=== PATIENT | female | born 1960 | race Caucasian/White ===

== ENCOUNTER → 2019-03-04 11:01 | Day surgery (SDC) | payer MEDICARE, MEDICAID ==
[~2019-03-04 11:01] MED LIST: Buffered Lidocaine 1% SYRIN* 1 ML/SYRINGE INTRADERM ONE; Bupivacaine 0.5%* 50 ML VIAL ONE; Clindamycin 900 MG IVPREMIX(* 900 MG/50 ML SDV IV ONE; Lactated Ringers 1000 ML Bag* 1,000 ML IV SCH; Lidocaine 1% INJ* 10 MG/ML 30 ML SDV ONE; Midazolam* 1 MG/ML 5 ML VIAL (5 MG) ONE; Naloxone* 0.4 MG/ML 1 ML VIAL IV PRN; Propofol* 10 MG/ML 20 ML BTL ONE; fentaNYL* 50 MCG/ML 2 ML VIAL (100 MCG VIAL) ONE
[2019-03-04 16:07] VITALS: BP 120/85
--- NOTE | 2019-03-04 16:25 | OP ---
ATE OF OPERATION: 03/04/19 - [facility] DATE OF : 58 SERVICE: General Surgery. SURGEON: Cindy Paulson MD PACK PULLER: Krysten Austin MD ANESTHESIOLOGIST: Clair Carney MD ANESTHESIA: MAC/local anesthesia. PRE-OP DIAGNOSIS: Left bloody nipple discharge. POST-OP DIAGNOSIS: Left bloody nipple discharge. OPERATIVE PROCEDURE: Left breast terminal duct excision. SPECIMENS: Left terminal duct and breast tissue. ESTIMATED BLOOD LOSS: Minimal, less than 10 cc. INDICATIONS FOR SURGERY: Ms. Lan is a very pleasant 58-year-old female with a history of left breast bloody nipple discharge. She had undergone mammogram and ultrasound where no significant abnormalities found. Given the persistence of this suspicious nipple discharge, she gave informed consent for a terminal duct excision. She understood the risks, benefits, and alternatives of the procedure and she wished to proceed. DESCRIPTION OF PROCEDURE: The patient was brought back to the operating room and placed on the operating table in the supine position. Sequential compression devices were placed on the bilateral lower extremities for DVT prophylaxis. Antibiotics were administered prior to incision. She has an allergy to PENICILLIN, so clindamycin was given. She underwent MAC and local anesthesia. Her left breast was prepped and draped in normal sterile fashion, and prior to beginning the procedure, a time-out was performed verifying the patient's name, MR number, and the procedure to be performed. Next, the nipple was examined. A small amount of pink-clear discharge was able to be expressed from the central duct. The nipple was elevated superiorly and the narrowest caliber lacrimal probe was able to be advanced a short distance into the central duct. Therefore, local anesthesia was administed in the four quadrants of the breast and at the inferior areola. An inferior periareolar incision was made from 3 o'clock to 9 o'clock. The skin was divided down to the subcutaneous tissue and the subcutaneous tissue was divided towards the nipple. The nipple edge was retracted superiorly and then the central ducts were isolated using a mosquito clamp. They were serially divided until the most central duct that the lacrimal probe had cannulated was identified. The lacrimal probe was clearly seen to be contained within this duct; therefore, the duct was clamped distally and proximally and divided. The proximal end was elevated and a small cone of tissue inferiorly was taken along with the specimen. Once the specimen was removed, the specimen was marked with a single short stitch at the superior edge, medium length suture at the medial edge, a long suture at the lateral edge and then the double suture was used to tie the duct. Then, this was carried off as specimen. Next, the breast cavity was examined. Hemostasis was obtained. The cavity was irrigated with saline several times, and once hemostasis was obtained, the incision was reapproximated. The dermis was closed using interrupted 3-0 Vicryl suture. The skin was closed using a running 4-0 Monocryl suture. A sterile dressing was then placed. The patient was woken up and she was taken to the PACU in stable condition. At the end of the case, all counts were correct and I was present during the entirety of the case. [id number] #: [id number] DELLA
== END | disposition home or self-care (01) ==
LOC: OR 11:01
PROVIDERS: ATTEND Surgery
DX: N64.52 Nipple discharge (principal); N61.0 Mastitis without abscess; Z87.891 Personal history of nicotine dependence; E11.9 Type 2 diabetes mellitus without complications; Z79.4 Long term (current) use of insulin; Z79.84 Long term (current) use of oral hypoglycemic drugs; F31.9 Bipolar disorder, unspecified; K21.9 Gastro-esophageal reflux disease without esophagitis; G47.33 Obstructive sleep apnea (adult) (pediatric); E66.9 Obesity, unspecified
CPT/HCPCS: 88307; J2250; J2704; J3010; J3490

== ENCOUNTER 2022-05-21 14:10 | Inpatient (IN) ==
[2022-05-21 16:05] LABS: ABS Lymphocytes 0.8 10^3/ul (1.0-4.8); ABS Monocytes 0.8 10^3/ul (0-0.8); ABS Neutrophils 6.5 10^3/ul (1.5-7.7); Eosinophil % 0.5 %; Hematocrit 37 % (35-47); Hemoglobin 12.1 g/dL (12.0-16.0); Mean Corpuscular HGB Conc 33 g/dL (31-36); Mean Corpuscular Hemoglobin 27 pg (27-31); Mean Corpuscular Volume 83 fL (80-97); Mean Platelet Volume 8.1 fL (7.4-10.4); Platelet Count 328 10^3/uL (150-450); Red Blood Count 4.42 10^6 /uL (3.70-4.87); Red Cell Distribution Width 15 % (10-15); White Blood Count 8.3 10^3/uL (3.5-10.8)
[2022-05-21 17:30] LABS: Albumin 3.4 g/dL (3.2-5.2); Albumin/Globulin Ratio 1.4 (1-3); Calcium 8.6 mg/dL (8.6-10.3); Globulin 2.5 g/dL (2-4); Potassium 3.4 mmol/L (3.5-5.0); Total Bilirubin 0.4 mg/dL (0.2-1.0); Total Protein 5.9 g/dL (6.4-8.9); eGFR CKD-EPI 102.3 (>60)
[2022-05-21 18:40] LABS: Urine Appearance Cloudy; Urine Bacteria 1+ (Absent); Urine Bilirubin Negative (Negative); Urine Blood Negative (Negative); Urine Color Yellow; Urine Glucose 1+(50 mg/dL) (Negative); Urine Ketones 2+ (Negative); Urine Nitrite Negative (Negative); Urine Protein 1+(30 mg/dL) (Negative); Urine Red Blood Cell Absent (Absent); Urine Specific Gravity 1.018 (1.002-1.030); Urine Squamous Epithelial Cell Present (Absent); Urine Urobilinogen Positive (Negative); Urine White Blood Cell 3+(>20/hpf) (Absent)
[2022-05-21 23:19] LABS: TSH Ultra Thyroid Stim Horm 2.68 mcIU/mL (0.34-5.60)
[2022-05-22] MEDS ORDERED: Al Hydrox/Mg Hydrox/Simet LIQ 30 ML UDC PO PRN (00:05)
[2022-05-22 09:50] LABS: HDL Cholesterol 24.2 mg/dL
[2022-05-22] MEDS: Vitamin THERAPEUTIC TAB PO SCH (11:02)
[2022-05-22] MEDS ORDERED: Dextrose 50% Syringe 50 ml 25 GM/50 ML SYRINGE IV PUSH PRN ×2 (11:46→13:25)
[2022-05-22] MEDS ORDERED: Calcium Carb (TUMS) 500 mg CHEW TAB PO PRN (12:02)
[2022-05-22] MEDS: Insulin GLARGINE 100 un/ml 10 ml VIAL SUBCUT SCH (14:04)
[2022-05-22] MEDS ORDERED: OLANZapine 5 mg TAB *ODT PO PRN (15:23)
[2022-05-22] MEDS ORDERED: Potassium Chlor 20 meq TAB.ER PO ONE (17:52)
[2022-05-23] MEDS: Vitamin THERAPEUTIC TAB PO SCH (07:47)
[2022-05-23] MEDS ORDERED: Insulin GLARGINE 100 un/ml 10 ml VIAL SUBCUT SCH (09:00)
[2022-05-23] MEDS: CMCS: Letrozole 2.5 MG TAB (NF) PO SCH (09:10)
[2022-05-23] MEDS: Cholecalciferol (VIT D3) 1,000 unit TAB PO SCH (09:10)
[2022-05-23] MEDS: Insulin GLARGINE 100 un/ml 10 ml VIAL SUBCUT SCH (09:12)
[2022-05-23 17:53] LABS: Urine Appearance Clear; Urine Bacteria Absent (Absent); Urine Bilirubin Negative (Negative); Urine Blood Negative (Negative); Urine Color Straw; Urine Glucose Negative (Negative); Urine Ketones Negative (Negative); Urine Nitrite Negative (Negative); Urine Protein Negative (Negative); Urine Red Blood Cell Trace(0-2/hpf) (Absent); Urine Specific Gravity 1.004 (1.002-1.030); Urine Squamous Epithelial Cell Present (Absent); Urine Urobilinogen Negative (Negative); Urine White Blood Cell 2+(11-20/hpf) (Absent)
[2022-05-23] MEDS: Nystatin TOP POWDER 15 GM BTL TOPICAL SCH (23:24)
[2022-05-24] MEDS: CMCS: Letrozole 2.5 MG TAB (NF) PO SCH (08:30)
[2022-05-24] MEDS: Cholecalciferol (VIT D3) 1,000 unit TAB PO SCH (08:31)
[2022-05-24] MEDS: Nystatin TOP POWDER 15 GM BTL TOPICAL SCH ×2 (08:31→21:23)
[2022-05-24] MEDS: Insulin GLARGINE 100 un/ml 10 ml VIAL SUBCUT SCH (08:32)
[2022-05-24] MEDS: Vitamin THERAPEUTIC TAB PO SCH (08:39)
[2022-05-24] MEDS ORDERED: NF: Dulaglutide (NF) 1.5 MG/0.5 ML SYRINGE SUBCUT SCH (09:00)
[2022-05-25] MEDS: Vitamin THERAPEUTIC TAB PO SCH (09:10)
[2022-05-25] MEDS: Cholecalciferol (VIT D3) 1,000 unit TAB PO SCH (09:11)
[2022-05-25] MEDS: Insulin GLARGINE 100 un/ml 10 ml VIAL SUBCUT SCH (09:11)
[2022-05-25] MEDS: CMCS: Letrozole 2.5 MG TAB (NF) PO SCH (09:21)
[2022-05-25] MEDS: Nystatin TOP POWDER 15 GM BTL TOPICAL SCH ×2 (09:21→22:30)
[2022-05-26] MEDS: Insulin GLARGINE 100 un/ml 10 ml VIAL SUBCUT SCH (07:54)
[2022-05-26] MEDS: Vitamin THERAPEUTIC TAB PO SCH (09:18)
[2022-05-26] MEDS: Cholecalciferol (VIT D3) 1,000 unit TAB PO SCH (09:18)
[2022-05-26] MEDS: CMCS: Letrozole 2.5 MG TAB (NF) PO SCH (09:19)
[2022-05-26] MEDS: Nystatin TOP POWDER 15 GM BTL TOPICAL SCH ×2 (09:23→22:11)
[2022-05-26] MEDS: Magnesium Hydroxide LIQ 30 ML UDC PO PRN (15:51)
[2022-05-27] MEDS: CMCS: Letrozole 2.5 MG TAB (NF) PO SCH (10:33)
[2022-05-27] MEDS: Vitamin THERAPEUTIC TAB PO SCH (10:34)
[2022-05-27] MEDS: Cholecalciferol (VIT D3) 1,000 unit TAB PO SCH (10:35)
[2022-05-27] MEDS: Insulin GLARGINE 100 un/ml 10 ml VIAL SUBCUT SCH (10:36)
[2022-05-27] MEDS: Nystatin TOP POWDER 15 GM BTL TOPICAL SCH ×2 (10:40→21:30)
[2022-05-27] MEDS: Magnesium Hydroxide LIQ 30 ML UDC PO PRN (14:48)
[2022-05-28] MEDS: Insulin GLARGINE 100 un/ml 10 ml VIAL SUBCUT SCH (08:27)
[2022-05-28] MEDS: Cholecalciferol (VIT D3) 1,000 unit TAB PO SCH (08:30)
[2022-05-28] MEDS: Vitamin THERAPEUTIC TAB PO SCH (08:30)
[2022-05-28] MEDS: CMCS: Letrozole 2.5 MG TAB (NF) PO SCH (08:31)
[2022-05-28] MEDS: Nystatin TOP POWDER 15 GM BTL TOPICAL SCH ×2 (08:39→23:03)
[2022-05-28] MEDS ORDERED: Sodium Phosphate ADULT ENEMA 133 ML BTL PR ONE (10:09)
[2022-05-29] MEDS: Insulin GLARGINE 100 un/ml 10 ml VIAL SUBCUT SCH (08:37)
[2022-05-29] MEDS: Vitamin THERAPEUTIC TAB PO SCH (08:38)
[2022-05-29] MEDS: Cholecalciferol (VIT D3) 1,000 unit TAB PO SCH (08:38)
[2022-05-29] MEDS: CMCS: Letrozole 2.5 MG TAB (NF) PO SCH (08:48)
[2022-05-29] MEDS: Nystatin TOP POWDER 15 GM BTL TOPICAL SCH ×2 (08:48→21:02)
[2022-05-30] MEDS: Insulin GLARGINE 100 un/ml 10 ml VIAL SUBCUT SCH (08:44)
[2022-05-30] MEDS: CMCS: Letrozole 2.5 MG TAB (NF) PO SCH (08:45)
[2022-05-30] MEDS: Vitamin THERAPEUTIC TAB PO SCH (08:46)
[2022-05-30] MEDS: Cholecalciferol (VIT D3) 1,000 unit TAB PO SCH (08:47)
[2022-05-30] MEDS: Nystatin TOP POWDER 15 GM BTL TOPICAL SCH ×2 (10:02→21:32)
[2022-05-30] MEDS ORDERED: Sodium Phosphate ADULT ENEMA 133 ML BTL PR ONE (11:58)
[2022-05-30] MEDS: buPROPion SR 100 mg TAB.SR PO SCH (20:05)
[2022-05-31] MEDS: Vitamin THERAPEUTIC TAB PO SCH (08:47)
[2022-05-31] MEDS: buPROPion SR 100 mg TAB.SR PO SCH ×2 (08:47→21:00)
[2022-05-31] MEDS: Cholecalciferol (VIT D3) 1,000 unit TAB PO SCH (08:47)
[2022-05-31] MEDS: Insulin GLARGINE 100 un/ml 10 ml VIAL SUBCUT SCH (08:48)
[2022-05-31] MEDS: CMCS: Letrozole 2.5 MG TAB (NF) PO SCH (08:54)
[2022-05-31] MEDS: Nystatin TOP POWDER 15 GM BTL TOPICAL SCH ×2 (08:54→21:01)
[2022-06-01] MEDS: Vitamin THERAPEUTIC TAB PO SCH (07:40)
[2022-06-01] MEDS: Cholecalciferol (VIT D3) 1,000 unit TAB PO SCH (07:40)
[2022-06-01] MEDS: buPROPion SR 100 mg TAB.SR PO SCH ×2 (07:41→20:23)
[2022-06-01] MEDS: CMCS: Letrozole 2.5 MG TAB (NF) PO SCH (07:41)
[2022-06-01] MEDS: Insulin GLARGINE 100 un/ml 10 ml VIAL SUBCUT SCH (07:46)
[2022-06-01] MEDS: Nystatin TOP POWDER 15 GM BTL TOPICAL SCH ×3 (09:05→22:00)
[2022-06-02] MEDS: Insulin GLARGINE 100 un/ml 10 ml VIAL SUBCUT SCH (08:22)
[2022-06-02] MEDS: buPROPion SR 100 mg TAB.SR PO SCH ×2 (08:23→20:06)
[2022-06-02] MEDS: Cholecalciferol (VIT D3) 1,000 unit TAB PO SCH (08:24)
[2022-06-02] MEDS: Vitamin THERAPEUTIC TAB PO SCH (08:24)
[2022-06-02] MEDS: CMCS: Letrozole 2.5 MG TAB (NF) PO SCH (08:24)
[2022-06-02] MEDS: Nystatin TOP POWDER 15 GM BTL TOPICAL SCH ×2 (08:25→20:09)
[2022-06-03] MEDS: buPROPion SR 100 mg TAB.SR PO SCH ×2 (09:07→20:01)
[2022-06-03] MEDS: Cholecalciferol (VIT D3) 1,000 unit TAB PO SCH (09:07)
[2022-06-03] MEDS: Vitamin THERAPEUTIC TAB PO SCH (09:08)
[2022-06-03] MEDS: CMCS: Letrozole 2.5 MG TAB (NF) PO SCH (09:08)
[2022-06-03] MEDS: Insulin GLARGINE 100 un/ml 10 ml VIAL SUBCUT SCH (09:09)
[2022-06-03] MEDS: Nystatin TOP POWDER 15 GM BTL TOPICAL SCH ×2 (11:16→22:06)
[2022-06-03] MEDS: Ondansetron ODT 4 mg TAB 4 MG TAB PO PRN (17:42)
[2022-06-04] MEDS: Cholecalciferol (VIT D3) 1,000 unit TAB PO SCH (09:08)
[2022-06-04] MEDS: buPROPion SR 100 mg TAB.SR PO SCH ×2 (09:10→21:06)
[2022-06-04] MEDS: Vitamin THERAPEUTIC TAB PO SCH (09:10)
[2022-06-04] MEDS: Insulin GLARGINE 100 un/ml 10 ml VIAL SUBCUT SCH (09:12)
[2022-06-04] MEDS: CMCS: Letrozole 2.5 MG TAB (NF) PO SCH (09:14)
[2022-06-04] MEDS: Nystatin TOP POWDER 15 GM BTL TOPICAL SCH ×2 (09:15→21:08)
[2022-06-05] MEDS: CMCS: Letrozole 2.5 MG TAB (NF) PO SCH (09:20)
[2022-06-05] MEDS: buPROPion SR 100 mg TAB.SR PO SCH ×2 (09:20→19:30)
[2022-06-05] MEDS: Cholecalciferol (VIT D3) 1,000 unit TAB PO SCH (09:20)
[2022-06-05] MEDS: Vitamin THERAPEUTIC TAB PO SCH (09:20)
[2022-06-05] MEDS: Nystatin TOP POWDER 15 GM BTL TOPICAL SCH ×2 (09:21→19:32)
[2022-06-05] MEDS: Insulin GLARGINE 100 un/ml 10 ml VIAL SUBCUT SCH (09:38)
[2022-06-06] MEDS: CMCS: Letrozole 2.5 MG TAB (NF) PO SCH (09:59)
[2022-06-06] MEDS: Cholecalciferol (VIT D3) 1,000 unit TAB PO SCH (09:59)
[2022-06-06] MEDS: buPROPion SR 100 mg TAB.SR PO SCH ×2 (10:00→20:29)
[2022-06-06] MEDS: Insulin GLARGINE 100 un/ml 10 ml VIAL SUBCUT SCH (10:17)
[2022-06-06] MEDS: Vitamin THERAPEUTIC TAB PO SCH (10:29)
[2022-06-06] MEDS: Nystatin TOP POWDER 15 GM BTL TOPICAL SCH ×2 (10:29→21:17)
[2022-06-07] MEDS: Cholecalciferol (VIT D3) 1,000 unit TAB PO SCH (08:06)
[2022-06-07] MEDS: buPROPion SR 100 mg TAB.SR PO SCH ×2 (08:06→20:51)
[2022-06-07] MEDS: Insulin GLARGINE 100 un/ml 10 ml VIAL SUBCUT SCH (08:06)
[2022-06-07] MEDS: Nystatin TOP POWDER 15 GM BTL TOPICAL SCH ×2 (08:07→20:52)
[2022-06-07] MEDS: Vitamin THERAPEUTIC TAB PO SCH (08:07)
[2022-06-07] MEDS: CMCS: Letrozole 2.5 MG TAB (NF) PO SCH (08:15)
[2022-06-08] MEDS: Cholecalciferol (VIT D3) 1,000 unit TAB PO SCH (07:30)
[2022-06-08] MEDS: CMCS: Letrozole 2.5 MG TAB (NF) PO SCH (07:31)
[2022-06-08] MEDS: Vitamin THERAPEUTIC TAB PO SCH (07:32)
[2022-06-08] MEDS: buPROPion SR 100 mg TAB.SR PO SCH ×2 (07:32→21:16)
[2022-06-08] MEDS: Insulin GLARGINE 100 un/ml 10 ml VIAL SUBCUT SCH (09:02)
[2022-06-08] MEDS: Neomycin/Polym/Bacit TOP OINT 15 GM TOPICAL SCH (09:13)
[2022-06-08] MEDS: Nystatin TOP POWDER 15 GM BTL TOPICAL SCH (09:13)
[2022-06-09] MEDS: Insulin GLARGINE 100 un/ml 10 ml VIAL SUBCUT SCH (08:57)
[2022-06-09] MEDS: CMCS: Letrozole 2.5 MG TAB (NF) PO SCH (08:59)
[2022-06-09] MEDS: Cholecalciferol (VIT D3) 1,000 unit TAB PO SCH (09:00)
[2022-06-09] MEDS: buPROPion SR 100 mg TAB.SR PO SCH ×2 (09:00→21:17)
[2022-06-09] MEDS: Vitamin THERAPEUTIC TAB PO SCH (09:01)
[2022-06-09] MEDS: Nystatin TOP POWDER 15 GM BTL TOPICAL SCH ×2 (09:03→23:20)
[2022-06-09] MEDS: Neomycin/Polym/Bacit TOP OINT 15 GM TOPICAL SCH (09:03)
[2022-06-10 07:56] LABS: ABS Eosinophils 0.1 10^3/ul (0-0.6); ABS Monocytes 0.5 10^3/ul (0-0.8); Eosinophil % 3.9 %; Hematocrit 40 % (35-47); Hemoglobin 13.2 g/dL (12.0-16.0); Lymphocyte % 26.8 %; Mean Corpuscular HGB Conc 33 g/dL (31-36); Mean Corpuscular Hemoglobin 28 pg (27-31); Mean Corpuscular Volume 84 fL (80-97); Mean Platelet Volume 7.9 fL (7.4-10.4); Nucleated Red Blood Cells % 0.1; Platelet Count 329 10^3/uL (150-450); Red Blood Count 4.78 10^6 /uL (3.70-4.87); Red Cell Distribution Width 16 % (10-15); White Blood Count 3.6 10^3/uL (3.5-10.8)
[2022-06-10 08:11] LABS: Albumin 3.7 g/dL (3.2-5.2); Albumin/Globulin Ratio 1.3 (1-3); Calcium 9.4 mg/dL (8.6-10.3); Globulin 2.8 g/dL (2-4); Potassium 4.1 mmol/L (3.5-5.0); Total Bilirubin 0.3 mg/dL (0.2-1.0); Total Protein 6.5 g/dL (6.4-8.9); eGFR CKD-EPI 101.4 (>60)
[2022-06-10] MEDS: Insulin GLARGINE 100 un/ml 10 ml VIAL SUBCUT SCH (09:36)
[2022-06-10] MEDS: Vitamin THERAPEUTIC TAB PO SCH (09:37)
[2022-06-10] MEDS: Cholecalciferol (VIT D3) 1,000 unit TAB PO SCH (09:37)
[2022-06-10] MEDS: CMCS: Letrozole 2.5 MG TAB (NF) PO SCH (09:43)
[2022-06-10] MEDS: Neomycin/Polym/Bacit TOP OINT 15 GM TOPICAL SCH (09:43)
[2022-06-10] MEDS: Nystatin TOP POWDER 15 GM BTL TOPICAL SCH ×2 (09:43→23:18)
[2022-06-10] MEDS: Magnesium Hydroxide LIQ 30 ML UDC PO PRN (21:34)
[2022-06-11] MEDS: Insulin GLARGINE 100 un/ml 10 ml VIAL SUBCUT SCH ×2 (08:38→09:59)
[2022-06-11] MEDS: Vitamin THERAPEUTIC TAB PO SCH (08:39)
[2022-06-11] MEDS: CMCS: Letrozole 2.5 MG TAB (NF) PO SCH (08:42)
[2022-06-11] MEDS: Cholecalciferol (VIT D3) 1,000 unit TAB PO SCH (08:42)
[2022-06-11] MEDS: Neomycin/Polym/Bacit TOP OINT 15 GM TOPICAL SCH (08:44)
[2022-06-11] MEDS: Nystatin TOP POWDER 15 GM BTL TOPICAL SCH ×2 (08:44→22:00)
[2022-06-12] MEDS: Insulin GLARGINE 100 un/ml 10 ml VIAL SUBCUT SCH (08:40)
[2022-06-12] MEDS: Cholecalciferol (VIT D3) 1,000 unit TAB PO SCH (10:38)
[2022-06-12] MEDS: Vitamin THERAPEUTIC TAB PO SCH (10:39)
[2022-06-12] MEDS: Neomycin/Polym/Bacit TOP OINT 15 GM TOPICAL SCH (10:39)
[2022-06-12] MEDS: CMCS: Letrozole 2.5 MG TAB (NF) PO SCH (10:39)
[2022-06-12] MEDS: Nystatin TOP POWDER 15 GM BTL TOPICAL SCH ×2 (10:39→21:04)
[2022-06-13] MEDS: Insulin GLARGINE 100 un/ml 10 ml VIAL SUBCUT SCH (08:27)
[2022-06-13] MEDS: Cholecalciferol (VIT D3) 1,000 unit TAB PO SCH (11:49)
[2022-06-13] MEDS: Neomycin/Polym/Bacit TOP OINT 15 GM TOPICAL SCH (11:50)
[2022-06-13] MEDS: Nystatin TOP POWDER 15 GM BTL TOPICAL SCH ×2 (11:50→20:31)
[2022-06-13] MEDS: Vitamin THERAPEUTIC TAB PO SCH (11:50)
[2022-06-13] MEDS: CMCS: Letrozole 2.5 MG TAB (NF) PO SCH (11:50)
[2022-06-14] MEDS: Insulin GLARGINE 100 un/ml 10 ml VIAL SUBCUT SCH (08:22)
[2022-06-14] MEDS: Neomycin/Polym/Bacit TOP OINT 15 GM TOPICAL SCH (09:53)
[2022-06-14] MEDS: Nystatin TOP POWDER 15 GM BTL TOPICAL SCH ×2 (09:53→21:43)
[2022-06-14] MEDS: Vitamin THERAPEUTIC TAB PO SCH (09:53)
[2022-06-14] MEDS: Cholecalciferol (VIT D3) 1,000 unit TAB PO SCH (09:53)
[2022-06-14] MEDS: CMCS: Letrozole 2.5 MG TAB (NF) PO SCH (09:53)
[2022-06-14] MEDS: Ondansetron ODT 4 mg TAB 4 MG TAB PO PRN (17:45)
[2022-06-15] MEDS: Ondansetron ODT 4 mg TAB 4 MG TAB PO PRN (08:12)
[2022-06-15] MEDS: Vitamin THERAPEUTIC TAB PO SCH (08:27)
[2022-06-15] MEDS: Cholecalciferol (VIT D3) 1,000 unit TAB PO SCH (08:27)
[2022-06-15] MEDS: CMCS: Letrozole 2.5 MG TAB (NF) PO SCH (08:28)
[2022-06-15] MEDS: Insulin GLARGINE 100 un/ml 10 ml VIAL SUBCUT SCH (08:35)
[2022-06-15] MEDS: Nystatin TOP POWDER 15 GM BTL TOPICAL SCH ×2 (11:40→20:07)
[2022-06-15] MEDS: Neomycin/Polym/Bacit TOP OINT 15 GM TOPICAL SCH (11:40)
[2022-06-16 09:00] LABS: ABS Lymphocytes 0.4 10^3/ul (1.0-4.8); ABS Monocytes 0.8 10^3/ul (0-0.8); ABS Neutrophils 7.3 10^3/ul (1.5-7.7); Eosinophil % 0.2 %; Hematocrit 42 % (35-47); Hemoglobin 13.8 g/dL (12.0-16.0); Lymphocyte % 4.9 %; Mean Corpuscular HGB Conc 33 g/dL (31-36); Mean Corpuscular Hemoglobin 28 pg (27-31); Mean Corpuscular Volume 83 fL (80-97); Mean Platelet Volume 7.6 fL (7.4-10.4); Platelet Count 365 10^3/uL (150-450); Red Blood Count 5.03 10^6 /uL (3.70-4.87); Red Cell Distribution Width 16 % (10-15); White Blood Count 8.5 10^3/uL (3.5-10.8)
[2022-06-16] MEDS: Insulin GLARGINE 100 un/ml 10 ml VIAL SUBCUT SCH (09:05)
[2022-06-16] MEDS: Cholecalciferol (VIT D3) 1,000 unit TAB PO SCH (09:21)
[2022-06-16] MEDS: CMCS: Letrozole 2.5 MG TAB (NF) PO SCH (09:22)
[2022-06-16] MEDS: Nystatin TOP POWDER 15 GM BTL TOPICAL SCH ×2 (09:23→21:04)
[2022-06-16] MEDS: Vitamin THERAPEUTIC TAB PO SCH (09:23)
[2022-06-16] MEDS: Neomycin/Polym/Bacit TOP OINT 15 GM TOPICAL SCH (09:23)
[2022-06-16 09:37] LABS: Albumin 4.4 g/dL (3.2-5.2); Albumin/Globulin Ratio 1.5 (1-3); Calcium 9.9 mg/dL (8.6-10.3); Potassium 4.7 mmol/L (3.5-5.0); Total Bilirubin 0.5 mg/dL (0.2-1.0); Total Protein 7.4 g/dL (6.4-8.9); eGFR CKD-EPI 70.4 (>60)
[2022-06-16 14:02] LABS: Urine Appearance Cloudy; Urine Bilirubin Negative (Negative); Urine Blood Negative (Negative); Urine Color Yellow; Urine Glucose 3+(>=500 mg/dL) (Negative); Urine Ketones Trace (Negative); Urine Nitrite Negative (Negative); Urine Protein 1+(30 mg/dL) (Negative); Urine Specific Gravity 1.029 (1.002-1.030); Urine Urobilinogen Negative (Negative)
[2022-06-16 14:17] LABS: Urine Bacteria Absent (Absent); Urine Red Blood Cell Absent (Absent); Urine White Blood Cell 3+(>20/hpf) (Absent)
[2022-06-17] MEDS: CMCS: Letrozole 2.5 MG TAB (NF) PO SCH (10:53)
[2022-06-17] MEDS: Cholecalciferol (VIT D3) 1,000 unit TAB PO SCH (10:53)
[2022-06-17] MEDS: Vitamin THERAPEUTIC TAB PO SCH (10:54)
[2022-06-17] MEDS: Neomycin/Polym/Bacit TOP OINT 15 GM TOPICAL SCH (12:07)
[2022-06-17] MEDS: Nystatin TOP POWDER 15 GM BTL TOPICAL SCH (12:08)
[2022-06-17] MEDS: Insulin GLARGINE 100 un/ml 10 ml VIAL SUBCUT SCH (12:52)
[2022-06-18] MEDS ORDERED: Mineral Oil ENEMA 118 ML/BOTTLE BOTTLE PR PRN (08:50)
[2022-06-18] MEDS: Vitamin THERAPEUTIC TAB PO SCH (08:58)
[2022-06-18] MEDS: CMCS: Letrozole 2.5 MG TAB (NF) PO SCH (08:59)
[2022-06-18] MEDS: Cholecalciferol (VIT D3) 1,000 unit TAB PO SCH (08:59)
[2022-06-18] MEDS: Nystatin TOP POWDER 15 GM BTL TOPICAL SCH ×2 (09:01→20:46)
[2022-06-18] MEDS: Insulin GLARGINE 100 un/ml 10 ml VIAL SUBCUT SCH (09:01)
[2022-06-18] MEDS: Neomycin/Polym/Bacit TOP OINT 15 GM TOPICAL SCH (09:04)
[2022-06-18] MEDS: Polyethylene Glycol 3350 17 GM PACKET PO SCH (20:47)
[2022-06-18] MEDS: CMCS:Letrozole 2.5 MG TAB (NF) PO SCH (21:01)
[2022-06-19] MEDS: Insulin GLARGINE 100 un/ml 10 ml VIAL SUBCUT SCH (08:34)
[2022-06-19] MEDS: Cholecalciferol (VIT D3) 1,000 unit TAB PO SCH (09:11)
[2022-06-19] MEDS: Vitamin THERAPEUTIC TAB PO SCH (09:12)
[2022-06-19] MEDS: Polyethylene Glycol 3350 17 GM PACKET PO SCH (09:12)
[2022-06-19] MEDS: Nystatin TOP POWDER 15 GM BTL TOPICAL SCH ×3 (09:19→20:26)
[2022-06-19] MEDS: Neomycin/Polym/Bacit TOP OINT 15 GM TOPICAL SCH (09:20)
[2022-06-19] MEDS: PEG 3000 GI LAVAGE 1 GALLON PO ONE ×2 (17:55→18:28)
[2022-06-19] MEDS: CMCS:Letrozole 2.5 MG TAB (NF) PO SCH (20:25)
[2022-06-20] MEDS: Nystatin TOP POWDER 15 GM BTL TOPICAL SCH ×2 (08:54→21:23)
[2022-06-20] MEDS: Cholecalciferol (VIT D3) 1,000 unit TAB PO SCH (08:54)
[2022-06-20] MEDS: Insulin GLARGINE 100 un/ml 10 ml VIAL SUBCUT SCH (08:54)
[2022-06-20] MEDS: Venlafaxine XR 75 mg PO SCH (08:55)
[2022-06-20] MEDS: Vitamin THERAPEUTIC TAB PO SCH (08:55)
[2022-06-20] MEDS: Neomycin/Polym/Bacit TOP OINT 15 GM TOPICAL SCH (09:06)
[2022-06-20] MEDS: CMCS:Letrozole 2.5 MG TAB (NF) PO SCH (21:22)
[2022-06-20] MEDS: Polyethylene Glycol 3350 17 GM PACKET PO SCH (21:22)
[2022-06-21] MEDS: Polyethylene Glycol 3350 17 GM PACKET PO SCH ×2 (08:35→21:52)
[2022-06-21] MEDS: Magnesium Hydroxide LIQ 30 ML UDC PO PRN (08:35)
[2022-06-21] MEDS: Insulin GLARGINE 100 un/ml 10 ml VIAL SUBCUT SCH (08:36)
[2022-06-21] MEDS: Cholecalciferol (VIT D3) 1,000 unit TAB PO SCH (08:36)
[2022-06-21] MEDS: Vitamin THERAPEUTIC TAB PO SCH (08:36)
[2022-06-21] MEDS: Venlafaxine XR 75 mg PO SCH (08:37)
[2022-06-21] MEDS: Nystatin TOP POWDER 15 GM BTL TOPICAL SCH ×3 (09:01→21:52)
[2022-06-21] MEDS: Neomycin/Polym/Bacit TOP OINT 15 GM TOPICAL SCH (13:49)
[2022-06-21] MEDS: CMCS:Letrozole 2.5 MG TAB (NF) PO SCH (21:50)
[2022-06-22] MEDS: Cholecalciferol (VIT D3) 1,000 unit TAB PO SCH (08:24)
[2022-06-22] MEDS: Vitamin THERAPEUTIC TAB PO SCH (08:24)
[2022-06-22] MEDS: Insulin GLARGINE 100 un/ml 10 ml VIAL SUBCUT SCH (08:27)
[2022-06-22] MEDS: Polyethylene Glycol 3350 17 GM PACKET PO SCH ×2 (08:31→22:48)
[2022-06-22] MEDS: Nystatin TOP POWDER 15 GM BTL TOPICAL SCH ×2 (08:54→23:03)
[2022-06-22] MEDS: Neomycin/Polym/Bacit TOP OINT 15 GM TOPICAL SCH (08:56)
[2022-06-22] MEDS: CMCS:Letrozole 2.5 MG TAB (NF) PO SCH (22:48)
[2022-06-23] MEDS: Cholecalciferol (VIT D3) 1,000 unit TAB PO SCH (08:41)
[2022-06-23] MEDS: Vitamin THERAPEUTIC TAB PO SCH (08:41)
[2022-06-23] MEDS: Insulin GLARGINE 100 un/ml 10 ml VIAL SUBCUT SCH (08:43)
[2022-06-23] MEDS: Polyethylene Glycol 3350 17 GM PACKET PO SCH ×2 (08:45→21:43)
[2022-06-23] MEDS: Nystatin TOP POWDER 15 GM BTL TOPICAL SCH ×2 (08:57→21:43)
[2022-06-23] MEDS: Neomycin/Polym/Bacit TOP OINT 15 GM TOPICAL SCH (08:57)
[2022-06-23] MEDS: CMCS:Letrozole 2.5 MG TAB (NF) PO SCH (21:43)
[2022-06-24] MEDS: Cholecalciferol (VIT D3) 1,000 unit TAB PO SCH (09:01)
[2022-06-24] MEDS: Insulin GLARGINE 100 un/ml 10 ml VIAL SUBCUT SCH (09:02)
[2022-06-24] MEDS: Vitamin THERAPEUTIC TAB PO SCH (09:02)
[2022-06-24] MEDS: Polyethylene Glycol 3350 17 GM PACKET PO SCH ×2 (09:03→22:36)
[2022-06-24] MEDS: Neomycin/Polym/Bacit TOP OINT 15 GM TOPICAL SCH (09:03)
[2022-06-24] MEDS: Nystatin TOP POWDER 15 GM BTL TOPICAL SCH ×2 (09:04→22:36)
[2022-06-24] MEDS: CMCS:Letrozole 2.5 MG TAB (NF) PO SCH (22:35)
[2022-06-25] MEDS: Vitamin THERAPEUTIC TAB PO SCH (08:33)
[2022-06-25] MEDS: Cholecalciferol (VIT D3) 1,000 unit TAB PO SCH (08:33)
[2022-06-25] MEDS: Polyethylene Glycol 3350 17 GM PACKET PO SCH ×2 (08:33→21:32)
[2022-06-25] MEDS: Insulin GLARGINE 100 un/ml 10 ml VIAL SUBCUT SCH (08:34)
[2022-06-25] MEDS: Neomycin/Polym/Bacit TOP OINT 15 GM TOPICAL SCH (08:35)
[2022-06-25] MEDS: Nystatin TOP POWDER 15 GM BTL TOPICAL SCH ×2 (08:35→21:59)
[2022-06-25] MEDS: CMCS:Letrozole 2.5 MG TAB (NF) PO SCH (21:31)
[2022-06-26] MEDS: Vitamin THERAPEUTIC TAB PO SCH (08:26)
[2022-06-26] MEDS: Cholecalciferol (VIT D3) 1,000 unit TAB PO SCH (08:26)
[2022-06-26] MEDS: Insulin GLARGINE 100 un/ml 10 ml VIAL SUBCUT SCH (08:27)
[2022-06-26] MEDS: Nystatin TOP POWDER 15 GM BTL TOPICAL SCH ×2 (08:31→20:51)
[2022-06-26] MEDS: Neomycin/Polym/Bacit TOP OINT 15 GM TOPICAL SCH (08:32)
[2022-06-26] MEDS: Polyethylene Glycol 3350 17 GM PACKET PO SCH ×2 (10:10→20:53)
[2022-06-26] MEDS: CMCS:Letrozole 2.5 MG TAB (NF) PO SCH (20:53)
[2022-06-27] MEDS: Venlafaxine XR 75 mg PO SCH (08:25)
[2022-06-27] MEDS: Vitamin THERAPEUTIC TAB PO SCH (08:27)
[2022-06-27] MEDS: Cholecalciferol (VIT D3) 1,000 unit TAB PO SCH (08:28)
[2022-06-27] MEDS: Insulin GLARGINE 100 un/ml 10 ml VIAL SUBCUT SCH (08:28)
[2022-06-27] MEDS: Nystatin TOP POWDER 15 GM BTL TOPICAL SCH ×2 (08:40→22:20)
[2022-06-27] MEDS: Polyethylene Glycol 3350 17 GM PACKET PO SCH ×2 (09:51→22:18)
[2022-06-27] MEDS: Neomycin/Polym/Bacit TOP OINT 15 GM TOPICAL SCH (09:51)
[2022-06-27] MEDS ORDERED: guaiFENesin DM SUGAR FREE 100 MG/10 MG 5 ML UDC PO PRN (15:55)
[2022-06-27] MEDS: CMCS:Letrozole 2.5 MG TAB (NF) PO SCH (22:19)
[2022-06-28] MEDS: Venlafaxine XR 75 mg PO SCH (09:16)
[2022-06-28] MEDS: Insulin GLARGINE 100 un/ml 10 ml VIAL SUBCUT SCH (09:16)
[2022-06-28] MEDS: Cholecalciferol (VIT D3) 1,000 unit TAB PO SCH (09:16)
[2022-06-28] MEDS: Polyethylene Glycol 3350 17 GM PACKET PO SCH ×2 (09:17→20:23)
[2022-06-28] MEDS: Vitamin THERAPEUTIC TAB PO SCH (09:17)
[2022-06-28] MEDS: Nystatin TOP POWDER 15 GM BTL TOPICAL SCH ×2 (09:17→20:23)
[2022-06-28] MEDS: Neomycin/Polym/Bacit TOP OINT 15 GM TOPICAL SCH (09:17)
[2022-06-28] MEDS: CMCS:Letrozole 2.5 MG TAB (NF) PO SCH (20:21)
[2022-06-29] MEDS: Cholecalciferol (VIT D3) 1,000 unit TAB PO SCH (09:43)
[2022-06-29] MEDS: Vitamin THERAPEUTIC TAB PO SCH (09:44)
[2022-06-29] MEDS: Venlafaxine XR 75 mg PO SCH (09:44)
[2022-06-29] MEDS: Polyethylene Glycol 3350 17 GM PACKET PO SCH ×3 (09:45→21:47)
[2022-06-29] MEDS: Insulin GLARGINE 100 un/ml 10 ml VIAL SUBCUT SCH (09:47)
[2022-06-29] MEDS: Nystatin TOP POWDER 15 GM BTL TOPICAL SCH ×2 (09:47→21:47)
[2022-06-29] MEDS: Neomycin/Polym/Bacit TOP OINT 15 GM TOPICAL SCH (11:48)
[2022-06-29] MEDS: CMCS:Letrozole 2.5 MG TAB (NF) PO SCH (20:14)
[2022-06-30] MEDS: Polyethylene Glycol 3350 17 GM PACKET PO SCH ×2 (09:19→20:40)
[2022-06-30] MEDS: Vitamin THERAPEUTIC TAB PO SCH (09:20)
[2022-06-30] MEDS: Cholecalciferol (VIT D3) 1,000 unit TAB PO SCH (09:20)
[2022-06-30] MEDS: Venlafaxine XR 75 mg PO SCH (09:21)
[2022-06-30] MEDS: Nystatin TOP POWDER 15 GM BTL TOPICAL SCH ×2 (09:22→20:43)
[2022-06-30] MEDS: Neomycin/Polym/Bacit TOP OINT 15 GM TOPICAL SCH (09:22)
[2022-06-30] MEDS: Insulin GLARGINE 100 un/ml 10 ml VIAL SUBCUT SCH (09:25)
[2022-06-30] MEDS: CMCS:Letrozole 2.5 MG TAB (NF) PO SCH (20:40)
[2022-07-01] MEDS: Venlafaxine XR 75 mg PO SCH (09:05)
[2022-07-01] MEDS: Cholecalciferol (VIT D3) 1,000 unit TAB PO SCH (09:05)
[2022-07-01] MEDS: Insulin GLARGINE 100 un/ml 10 ml VIAL SUBCUT SCH (09:11)
[2022-07-01] MEDS: Polyethylene Glycol 3350 17 GM PACKET PO SCH ×2 (09:11→20:20)
[2022-07-01] MEDS: Neomycin/Polym/Bacit TOP OINT 15 GM TOPICAL SCH (09:12)
[2022-07-01] MEDS: Vitamin THERAPEUTIC TAB PO SCH (10:18)
[2022-07-01] MEDS: CMCS:Letrozole 2.5 MG TAB (NF) PO SCH (20:19)
[2022-07-02 09:33] VITALS: BP 132/84
[2022-07-02] MEDS: Polyethylene Glycol 3350 17 GM PACKET PO SCH (09:54)
[2022-07-02] MEDS: Neomycin/Polym/Bacit TOP OINT 15 GM TOPICAL SCH (10:00)
[2022-07-02] MEDS: Cholecalciferol (VIT D3) 1,000 unit TAB PO SCH (10:00)
[2022-07-02] MEDS: Venlafaxine XR 75 mg PO SCH (10:00)
[2022-07-02] MEDS: Vitamin THERAPEUTIC TAB PO SCH (10:00)
[2022-07-02] MEDS: Insulin GLARGINE 100 un/ml 10 ml VIAL SUBCUT SCH (10:00)
== END 2022-07-02 03:45 | disposition home or self-care (01) | DRG 885 ==
LOC: ED 14:10 → BSU 23:15
PROVIDERS: ADMIT Psychiatry & Neurology Psychiatry; ATTEND Psychiatry & Neurology Psychiatry

== ENCOUNTER 2022-12-08 17:32 | Inpatient (IN) ==
[2022-12-08 20:04] LABS: ABS Basophils 0.1 10^3/uL (0.0-0.1); ABS Eosinophils 0.7 10^3/uL (0.0-0.5); ABS Lymphocytes 1.3 10^3/uL (1.0-4.8); ABS Neutrophils 6.2 10^3/uL (1.5-7.6); Eosinophil % 7.8 %; Hematocrit 36.8 % (35-45); Hemoglobin 12.6 g/dL (11.5-14.3); Lymphocyte % 14.3 %; Mean Corpuscular Hemoglobin 28.8 pg (27-33); Mean Corpuscular Hgb Conc 34.2 g/dL (31-36); Mean Corpuscular Volume 84.2 fL (80-97); Mean Platelet Volume 8.7 fL (7.5-11.2); Platelet Count 305 10^3/uL (150-450); Red Blood Count 4.37 10^6/uL (3.63-4.92); White Blood Count 9.3 10^3/uL (3.8-11.8)
[2022-12-08 20:33] LABS: High Sens Troponin Baseline 3 pg/mL (<15)
[2022-12-08 20:51] LABS: ALT 19 U/L (7-52); AST 17 U/L (13-39); Acetaminophen < 15 mcg/mL; Albumin 4.2 g/dL (3.2-5.2); Albumin/Globulin Ratio 1.8 (1-3); Alcohol, S < 13 mg/dL (<13); Alkaline Phosphatase 100 U/L (35-149); Anion Gap 12 mmol/L (2-16); Blood Urea Nitrogen 24 mg/dL (6-24); CO2 Carbon Dioxide 24 mmol/L (22-32); Calcium 9.5 mg/dL (8.6-10.3); Chloride 94 mmol/L (101-111); Creatine Kinase 235 U/L (10-223); Globulin 2.4 g/dL (2-4); Glucose 352 mg/dL (70-100); Potassium 3.4 mmol/L (3.5-5.0); Salicylate < 2.50 mg/dL (<30); Sodium 130 mmol/L (135-145); Total Protein 6.6 g/dL (6.4-8.9); eGFR CKD-EPI 97.1 (>60)
[2022-12-08] MEDS ORDERED: NS 0.9% 1000 ml BAG 1,000 ML IV ONE (21:00)
[2022-12-08 21:05] LABS: TSH Ultra Thyroid Stim Horm 2.71 mcIU/mL (0.34-5.60)
[2022-12-08 21:44] LABS: High Sensitivity Troponin 1 Hr 3 pg/mL (<15)
[2022-12-09 00:44] LABS: Urine Benzodiazepine Screen None Detected (None Detect); Urine Cannabinoids Screen None Detected (None Detect); Urine Opiates Screen None Detected (None Detect)
[2022-12-09 00:57] LABS: Urine Appearance Clear; Urine Bilirubin Negative (Negative); Urine Blood Negative (Negative); Urine Color Yellow; Urine Glucose 3+(>=500 mg/dL) (Negative); Urine Ketones Negative (Negative); Urine Nitrite Negative (Negative); Urine Protein Negative (Negative); Urine Specific Gravity 1.025 (1.002-1.030); Urine Urobilinogen Negative (Negative)
[2022-12-09] MEDS ORDERED: Al Hydrox/Mg Hydrox/Simet LIQ 30 ML UDC PO PRN (10:22)
[2022-12-09] MEDS ORDERED: Dulaglutide (NF) 1.5 MG/0.5 ML SYRINGE SUBCUT SCH (11:00)
[2022-12-09] MEDS: Latanoprost 0.005% 2.5 ml BTL BOTH EYES SCH (20:43)
[2022-12-10] MEDS ORDERED: Letrozole 2.5 MG TAB (NF) PO SCH (09:00)
[2022-12-10] MEDS: Cholecalciferol (VIT D3) 1,000 unit TAB PO SCH (10:39)
[2022-12-10] MEDS: Venlafaxine XR 75 mg PO SCH (10:41)
[2022-12-10] MEDS: CMCS: Letrozole 2.5 MG TAB (NF) PO SCH (10:44)
[2022-12-10] MEDS: Latanoprost 0.005% 2.5 ml BTL BOTH EYES SCH (20:22)
[2022-12-11] MEDS: Venlafaxine XR 75 mg PO SCH (09:45)
[2022-12-11] MEDS: Cholecalciferol (VIT D3) 1,000 unit TAB PO SCH (09:46)
[2022-12-11] MEDS: CMCS: Letrozole 2.5 MG TAB (NF) PO SCH (09:47)
[2022-12-11] MEDS: Latanoprost 0.005% 2.5 ml BTL BOTH EYES SCH (22:58)
[2022-12-12] MEDS: Venlafaxine XR 75 mg PO SCH (08:13)
[2022-12-12] MEDS: Cholecalciferol (VIT D3) 1,000 unit TAB PO SCH (08:13)
[2022-12-12] MEDS: CMCS: Letrozole 2.5 MG TAB (NF) PO SCH (08:14)
[2022-12-12] MEDS ORDERED: Paliperidone SUSTENNA 234 MG/1.5 ML IM ONE (11:00)
[2022-12-12] MEDS: Latanoprost 0.005% 2.5 ml BTL BOTH EYES SCH (20:40)
[2022-12-13] MEDS: Venlafaxine XR 75 mg PO SCH (08:53)
[2022-12-13] MEDS: Cholecalciferol (VIT D3) 1,000 unit TAB PO SCH (08:54)
[2022-12-13] MEDS: CMCS: Letrozole 2.5 MG TAB (NF) PO SCH (08:55)
[2022-12-13] MEDS: Latanoprost 0.005% 2.5 ml BTL BOTH EYES SCH (21:14)
[2022-12-14] MEDS: Cholecalciferol (VIT D3) 1,000 unit TAB PO SCH (08:38)
[2022-12-14] MEDS: Venlafaxine XR 75 mg PO SCH (08:39)
[2022-12-14] MEDS: CMCS: Letrozole 2.5 MG TAB (NF) PO SCH (08:40)
[2022-12-14] MEDS: Dulaglutide (NF) 1.5 MG/0.5 ML SYRINGE SUBCUT SCH (16:49)
[2022-12-14] MEDS: Latanoprost 0.005% 2.5 ml BTL BOTH EYES SCH (20:34)
[2022-12-15] MEDS: Venlafaxine XR 75 mg PO SCH (08:53)
[2022-12-15] MEDS: Cholecalciferol (VIT D3) 1,000 unit TAB PO SCH (08:53)
[2022-12-15] MEDS: CMCS: Letrozole 2.5 MG TAB (NF) PO SCH (08:55)
[2022-12-15] MEDS: Latanoprost 0.005% 2.5 ml BTL BOTH EYES SCH (20:42)
[2022-12-16 08:13] VITALS: BP 184/68
[2022-12-16] MEDS: Venlafaxine XR 75 mg PO SCH (09:14)
[2022-12-16] MEDS: Cholecalciferol (VIT D3) 1,000 unit TAB PO SCH (09:15)
[2022-12-16] MEDS: CMCS: Letrozole 2.5 MG TAB (NF) PO SCH (09:15)
[2022-12-16] MEDS: Dulaglutide (NF) 1.5 MG/0.5 ML SYRINGE SUBCUT SCH (13:47)
== END 2022-12-16 18:00 | disposition home or self-care (01) | DRG 885 ==
LOC: ED 17:32 → BSU 12-09 13:07
PROVIDERS: ADMIT Psychiatry & Neurology Psychiatry; ATTEND Student in an Organized Health Care Education/Training Program

== ENCOUNTER 2023-04-01 13:01 | Inpatient (IN) ==
[2023-04-01 14:24] LABS: ABS Eosinophils 0.1 10^3/uL (0.0-0.5); ABS Lymphocytes 0.7 10^3/uL (1.0-4.8); ABS Monocytes 0.8 10^3/uL (0.0-0.9); ABS Neutrophils 5.5 10^3/uL (1.5-7.6); ABS Nucleated RBC 0.01 10^3/ul; Eosinophil % 1.7 %; Hemoglobin 13.4 g/dL (11.5-14.3); Lymphocyte % 10.1 %; Mean Corpuscular Hemoglobin 30.1 pg (27-33); Mean Corpuscular Hgb Conc 34.3 g/dL (31-36); Mean Corpuscular Volume 87.9 fL (80-97); Nucleated Red Blood Cells % 0.1 /100 WBC (0.0-0.4); Platelet Count 310 10^3/uL (150-450); Red Blood Count 4.43 10^6/uL (3.63-4.92); Red Cell Distribution Width 14.2 % (12-17); White Blood Count 7.1 10^3/uL (3.8-11.8)
[2023-04-01] MEDS ORDERED: Lactated Ringers 1000 ml BAG 1,000 ML IV ONE (14:37)
[2023-04-01 14:52] LABS: Albumin 4.4 g/dL (3.2-5.2); Albumin/Globulin Ratio 1.6 (1-3); C Reactive Protein 16.5 mg/L (<8.01); Calcium 9.5 mg/dL (8.6-10.3); Creatinine, Serum 0.8 mg/dL (0.51-0.95); Globulin 2.8 g/dL (2-4); Magnesium 1.8 mg/dL (1.9-2.7); Potassium 4.1 mmol/L (3.5-5.0); Total Bilirubin 0.5 mg/dL (0.2-1.0); Total Protein 7.2 g/dL (6.4-8.9); eGFR CKD-EPI 82.7 (>60)
[2023-04-01] MEDS ORDERED: Magnesium Sulfate 2 gm BAG 2 GM/50 ML BAG IVPB ONE (14:56)
[2023-04-01 15:14] LABS: TSH Ultra Thyroid Stim Horm 2.58 mcIU/mL (0.34-5.60)
[2023-04-02] MEDS ORDERED: Al Hydrox/Mg Hydrox/Simet LIQ 30 ML UDC PO PRN (10:08)
[2023-04-02] MEDS: CMCS: Letrozole 2.5 MG TAB (NF) PO SCH (10:12)
[2023-04-02] MEDS: Venlafaxine XR 75 mg PO SCH (15:54)
[2023-04-02 23:51] LABS: Urine Appearance Clear; Urine Bilirubin Negative (Negative); Urine Blood Negative (Negative); Urine Color Yellow; Urine Glucose Negative (Negative); Urine Ketones Trace (Negative); Urine Nitrite Negative (Negative); Urine Protein Negative (Negative); Urine Specific Gravity 1.019 (1.002-1.030); Urine Urobilinogen Negative (Negative)
[2023-04-03] MEDS ORDERED: Iodixanol (CONTRAST) 320 MG/ML 100 ML SDV IV ONE (01:20)
[2023-04-03] MEDS: Ondansetron ODT 4 mg TAB 4 MG TAB PO PRN ×2 (01:27→08:51)
[2023-04-03 01:40] LABS: Hematocrit 34.9 % (35-45); Hemoglobin 12.1 g/dL (11.5-14.3); Mean Corpuscular Hemoglobin 30.3 pg (27-33); Mean Corpuscular Hgb Conc 34.5 g/dL (31-36); Mean Corpuscular Volume 87.7 fL (80-97); Mean Platelet Volume 7.8 fL (7.5-11.2); Platelet Count 259 10^3/uL (150-450); Red Blood Count 3.98 10^6/uL (3.63-4.92); Red Cell Distribution Width 14.1 % (12-17); White Blood Count 6.5 10^3/uL (3.8-11.8)
[2023-04-03 01:59] LABS: Albumin 3.6 g/dL (3.2-5.2); Albumin/Globulin Ratio 1.5 (1-3); C Reactive Protein 22.95 mg/L (<8.01); Calcium 8.7 mg/dL (8.6-10.3); Creatinine, Serum 0.7 mg/dL (0.51-0.95); Globulin 2.4 g/dL (2-4); Potassium 3.2 mmol/L (3.5-5.0); Total Bilirubin 0.5 mg/dL (0.2-1.0); eGFR CKD-EPI 97.1 (>60)
[2023-04-03] MEDS ORDERED: Dextrose 50% Syringe 50 ml 25 GM/50 ML SYRINGE IV PUSH PRN (04:54)
[2023-04-03] MEDS ORDERED: PEG 3000 GI LAVAGE 1 GALLON PO ONE (07:23)
[2023-04-03] MEDS ORDERED: Potassium Chlor 20 meq TAB.ER PO ONE (07:24)
[2023-04-03 07:52] LABS: Magnesium 1.7 mg/dL (1.9-2.7)
[2023-04-03] MEDS: Venlafaxine XR 75 mg PO SCH (08:46)
[2023-04-03] MEDS: CMCS: Letrozole 2.5 MG TAB (NF) PO SCH (08:47)
[2023-04-03] MEDS ORDERED: fentaNYL 100 mcg/2 ml 50 MCG/ML VIAL ONE (11:21)
[2023-04-03] MEDS ORDERED: Midazolam 2 mg/2 ml VIAL 1 mg/ml 2 ml VIAL (2 mg) ONE (11:21)
[2023-04-03] MEDS ORDERED: Ondansetron 4 mg VIAL 2 MG/ML 2 ml VIAL ONE (12:19)
[2023-04-03] MEDS ORDERED: Paliperidone SUSTENNA 234 MG/1.5 ML IM ONE (12:24)
[2023-04-03] MEDS ORDERED: Sterile Water for Inj 10 ML ONE (15:31)
[2023-04-03] MEDS: Enoxaparin 40 MG/0.4 ML SYR SUBCUT SCH (20:52)
[2023-04-04] MEDS: CMCS: Letrozole 2.5 MG TAB (NF) PO SCH (08:24)
[2023-04-04] MEDS: Senna TAB 8.6 mg TAB PO SCH (08:24)
[2023-04-04] MEDS: Venlafaxine XR 75 mg PO SCH (08:24)
[2023-04-04] MEDS ORDERED: Polyethylene Glycol 3350 17 GM PACKET PO SCH (09:00)
[2023-04-04] MEDS: Enoxaparin 40 MG/0.4 ML SYR SUBCUT SCH (21:35)
[2023-04-05] MEDS: Polyethylene Glycol 3350 17 GM PACKET PO SCH ×2 (10:47→21:39)
[2023-04-05] MEDS: CMCS: Letrozole 2.5 MG TAB (NF) PO SCH (10:56)
[2023-04-05] MEDS: Senna TAB 8.6 mg TAB PO SCH (10:56)
[2023-04-05] MEDS: Venlafaxine XR 75 mg PO SCH (10:57)
[2023-04-05] MEDS: Enoxaparin 40 MG/0.4 ML SYR SUBCUT SCH (21:34)
[2023-04-06] MEDS: Polyethylene Glycol 3350 17 GM PACKET PO SCH ×2 (09:58→20:44)
[2023-04-06] MEDS: Senna TAB 8.6 mg TAB PO SCH (09:59)
[2023-04-06] MEDS: Venlafaxine XR 75 mg PO SCH (09:59)
[2023-04-06] MEDS: CMCS: Letrozole 2.5 MG TAB (NF) PO SCH (10:00)
[2023-04-06] MEDS: Enoxaparin 40 MG/0.4 ML SYR SUBCUT SCH (20:44)
[2023-04-07 06:19] LABS: Calcium 9.3 mg/dL (8.6-10.3); Creatinine, Serum 0.84 mg/dL (0.51-0.95); Magnesium 1.9 mg/dL (1.9-2.7); Phosphorus 3.8 mg/dL (2.5-5.0)
[2023-04-07] MEDS: Senna TAB 8.6 mg TAB PO SCH ×2 (08:44→09:08)
[2023-04-07] MEDS: Venlafaxine XR 75 mg PO SCH (08:45)
[2023-04-07] MEDS: CMCS: Letrozole 2.5 MG TAB (NF) PO SCH ×2 (08:46→09:07)
[2023-04-07] MEDS: Polyethylene Glycol 3350 17 GM PACKET PO SCH ×2 (08:46→22:12)
[2023-04-07] MEDS: Enoxaparin 40 MG/0.4 ML SYR SUBCUT SCH (22:12)
[2023-04-08] MEDS: Polyethylene Glycol 3350 17 GM PACKET PO SCH ×2 (09:47→21:05)
[2023-04-08] MEDS: Senna TAB 8.6 mg TAB PO SCH (09:48)
[2023-04-08] MEDS: Venlafaxine XR 75 mg PO SCH (09:53)
[2023-04-08] MEDS: CMCS: Letrozole 2.5 MG TAB (NF) PO SCH (09:54)
[2023-04-08] MEDS: Lactulose 30 ml UDC PO SCH ×3 (10:00→21:17)
[2023-04-08] MEDS: Enoxaparin 40 MG/0.4 ML SYR SUBCUT SCH (21:04)
[2023-04-09] MEDS: Polyethylene Glycol 3350 17 GM PACKET PO SCH ×2 (08:18→22:02)
[2023-04-09] MEDS: Venlafaxine XR 75 mg PO SCH (08:19)
[2023-04-09] MEDS: Senna TAB 8.6 mg TAB PO SCH (08:20)
[2023-04-09] MEDS: CMCS: Letrozole 2.5 MG TAB (NF) PO SCH (08:24)
[2023-04-09] MEDS: Lactulose 30 ml UDC PO SCH ×3 (08:28→22:09)
[2023-04-09] MEDS: Enoxaparin 40 MG/0.4 ML SYR SUBCUT SCH (22:02)
[2023-04-10] MEDS: Lactulose 30 ml UDC PO SCH ×2 (11:15→20:25)
[2023-04-10] MEDS: Venlafaxine XR 75 mg PO SCH (11:16)
[2023-04-10] MEDS: CMCS: Letrozole 2.5 MG TAB (NF) PO SCH (11:17)
[2023-04-10] MEDS: Senna TAB 8.6 mg TAB PO SCH (11:19)
[2023-04-10] MEDS: Polyethylene Glycol 3350 17 GM PACKET PO SCH (11:38)
[2023-04-10 16:59] LABS: ABS Eosinophils 0.1 10^3/uL (0.0-0.5); ABS Lymphocytes 0.9 10^3/uL (1.0-4.8); ABS Monocytes 0.7 10^3/uL (0.0-0.9); ABS Neutrophils 5.5 10^3/uL (1.5-7.6); ABS Nucleated RBC 0.01 10^3/ul; Eosinophil % 1.5 %; Hematocrit 41.5 % (35-45); Hemoglobin 14.2 g/dL (11.5-14.3); Lymphocyte % 11.9 %; Mean Corpuscular Hemoglobin 30.1 pg (27-33); Mean Corpuscular Hgb Conc 34.3 g/dL (31-36); Mean Corpuscular Volume 87.7 fL (80-97); Nucleated Red Blood Cells % 0.1 /100 WBC (0.0-0.4); Platelet Count 341 10^3/uL (150-450); Red Blood Count 4.73 10^6/uL (3.63-4.92); Red Cell Distribution Width 13.7 % (12-17); White Blood Count 7.2 10^3/uL (3.8-11.8)
[2023-04-10 17:03] LABS: Calcium 9.7 mg/dL (8.6-10.3); Creatinine, Serum 0.85 mg/dL (0.51-0.95); Potassium 3.9 mmol/L (3.5-5.0); eGFR CKD-EPI 76.9 (>60)
[2023-04-10] MEDS: Lactated Ringers 1000 ml BAG 1,000 ML IV SCH (17:11)
[2023-04-10 19:40] LABS: Urine Appearance Cloudy; Urine Bilirubin Negative (Negative); Urine Blood Negative (Negative); Urine Color Amber; Urine Glucose Negative (Negative); Urine Ketones 1+ (Negative); Urine Nitrite Positive (Negative); Urine Protein 1+(30 mg/dL) (Negative); Urine Specific Gravity 1.019 (1.002-1.030); Urine Urobilinogen Negative (Negative)
[2023-04-10 19:44] LABS: Urine Bacteria 1+ (Absent); Urine Red Blood Cell 3+(>10/hpf) (Absent); Urine Squamous Epithelial Cell Present (Absent); Urine Transitional Epithelial Present (Absent); Urine White Blood Cell 3+(>20/hpf) (Absent)
[2023-04-10] MEDS: Enoxaparin 40 MG/0.4 ML SYR SUBCUT SCH (20:26)
[2023-04-11] MEDS: Lactated Ringers 1000 ml BAG 1,000 ML IV SCH (03:59)
[2023-04-11] MEDS: Senna TAB 8.6 mg TAB PO SCH (07:55)
[2023-04-11] MEDS: Lactulose 30 ml UDC PO SCH ×2 (07:56→22:49)
[2023-04-11] MEDS: CMCS: Letrozole 2.5 MG TAB (NF) PO SCH (07:56)
[2023-04-11] MEDS: Venlafaxine XR 75 mg PO SCH (07:56)
[2023-04-11] MEDS: Enoxaparin 40 MG/0.4 ML SYR SUBCUT SCH (22:49)
[2023-04-11] MEDS: Nitrofurantoin (monohydrate/macrocrystals) 100 mg CAP PO SCH (22:51)
[2023-04-12] MEDS: Lactulose 30 ml UDC PO SCH ×2 (09:48→23:10)
[2023-04-12] MEDS: Senna TAB 8.6 mg TAB PO SCH (09:48)
[2023-04-12] MEDS: Nitrofurantoin (monohydrate/macrocrystals) 100 mg CAP PO SCH ×2 (09:48→23:08)
[2023-04-12] MEDS: Venlafaxine XR 75 mg PO SCH (09:49)
[2023-04-12] MEDS: CMCS: Letrozole 2.5 MG TAB (NF) PO SCH (09:49)
[2023-04-12] MEDS: Enoxaparin 40 MG/0.4 ML SYR SUBCUT SCH (23:05)
[2023-04-13 06:35] LABS: Creatinine, Serum 0.83 mg/dL (0.51-0.95); Magnesium 1.9 mg/dL (1.9-2.7); Potassium 3.9 mmol/L (3.5-5.0); eGFR CKD-EPI 79.2 (>60)
[2023-04-13] MEDS: CMCS: Letrozole 2.5 MG TAB (NF) PO SCH (11:22)
[2023-04-13] MEDS: Senna TAB 8.6 mg TAB PO SCH (11:25)
[2023-04-13] MEDS: Venlafaxine XR 75 mg PO SCH (11:30)
[2023-04-13] MEDS: Lactulose 30 ml UDC PO SCH ×2 (11:34→20:47)
[2023-04-13] MEDS: Nitrofurantoin (monohydrate/macrocrystals) 100 mg CAP PO SCH ×2 (11:46→20:48)
[2023-04-13] MEDS ORDERED: Lactated Ringers 1000 ml BAG 1,000 ML IV ONE (16:26)
[2023-04-13] MEDS: Enoxaparin 40 MG/0.4 ML SYR SUBCUT SCH (20:47)
[2023-04-14] MEDS: CMCS: Letrozole 2.5 MG TAB (NF) PO SCH (10:16)
[2023-04-14] MEDS: Venlafaxine XR 75 mg PO SCH (10:16)
[2023-04-14] MEDS: Senna TAB 8.6 mg TAB PO SCH (10:17)
[2023-04-14] MEDS: Lactulose 30 ml UDC PO SCH ×2 (10:17→20:52)
[2023-04-14] MEDS: Nitrofurantoin (monohydrate/macrocrystals) 100 mg CAP PO SCH ×2 (10:20→20:52)
[2023-04-14] MEDS: Enoxaparin 40 MG/0.4 ML SYR SUBCUT SCH (20:52)
[2023-04-15] MEDS: Senna TAB 8.6 mg TAB PO SCH (09:47)
[2023-04-15] MEDS: Lactulose 30 ml UDC PO SCH ×2 (09:47→23:33)
[2023-04-15] MEDS: Venlafaxine XR 75 mg PO SCH (09:48)
[2023-04-15] MEDS: Nitrofurantoin (monohydrate/macrocrystals) 100 mg CAP PO SCH ×2 (09:48→20:42)
[2023-04-15] MEDS: CMCS: Letrozole 2.5 MG TAB (NF) PO SCH (09:48)
[2023-04-15] MEDS: Enoxaparin 40 MG/0.4 ML SYR SUBCUT SCH (20:43)
[2023-04-16] MEDS ORDERED: Venlafaxine XR 75 mg PO SCH (09:00)
[2023-04-16] MEDS: Lactulose 30 ml UDC PO SCH (10:15)
[2023-04-16] MEDS: Senna TAB 8.6 mg TAB PO SCH (10:20)
[2023-04-16] MEDS: CMCS: Letrozole 2.5 MG TAB (NF) PO SCH (10:20)
[2023-04-16] MEDS: Nitrofurantoin (monohydrate/macrocrystals) 100 mg CAP PO SCH (10:22)
[2023-04-16 10:36] LABS: Rapid COVID-19 Molecular Undetected (Undetected)
[2023-04-16 14:58] VITALS: BP 126/80
== END 2023-04-16 16:10 | DRG 885 ==
LOC: ED 13:01 → SUATTDRO 04-02 10:08 → EDHOLD 04-02 10:08 → BSU 04-02 14:24 → MEDTELE 04-03 05:52
PROVIDERS: ADMIT Psychiatry & Neurology Psychiatry; ATTEND Hospitalist
PROC: O.GIFSC (2023-04-03 13:40)